=== PATIENT | female | born 1980 | race African-American/Black ===

== ENCOUNTER 2017-01-17 23:15 | Emergency (ER) | payer SELFPAY ==
[~2017-01-17] VITALS: Ht 165.1 cm; Wt 81.1 kg
[2017-01-17 23:40] LABS: HEMATOCRIT 37.4 % (36.0-46.0); MCH 27.3 PG (29.0-34.0); MCHC 32.9 G/DL (30.0-36.0); MCV 83.1 FL (83-99); MEAN PLAT.VOLUME 9.5 uM^3 (9.5-12.4); NRBC (%) 0.3 /100 WBC (0-0); PLATELET COUNT 254 K/uL (156-360); RBC DIS.WIDTH-CV 15.4 % (11.8-14.6); RBC DIS.WIDTH-SD 46.6 % (39-53); WHITE BLOOD COUNT 6.6 K/uL (4.1-10.2)
[2017-01-17 23:47] LABS: ADD MIUA? YES; BILIRUBIN NEGATIVE; BLOOD NEGATIVE; COLOR YELLOW ((YELLOW)); GLUCOSE (STRIP) NEGATIVE; KETONES 5; LEUKOCYTES SMALL; NITRITE NEGATIVE; PROTEIN (STRIP) 30; SPECIFIC GRAVITY 1.027 (1.000-1.030)
[2017-01-17 23:51] LABS: CHLORIDE 108 mEq/L (99-109); POTASSIUM 3.4 mEq/L (3.7-5.4); SODIUM 140 mEq/L (136-147)
[2017-01-17 23:53] LABS: GLUCOSE 107 mg/dL (70-99)
[2017-01-17 23:54] LABS: ANION GAP 9 MEQ/L (2-14)
[2017-01-17 23:56] LABS: BACTERIA 2+ /HPF; EPITHELIAL CELLS 1+ /HPF; MUCUS 2+ /LPF
[2017-01-17 23:57] LABS: GFR ESTIMATE (CALCULATED) > 59 mL/min/
[2017-01-17 23:58] LABS: UREA NITROGEN (BUN) 9 mg/dL (9-23)
[2017-01-18 00:05] LABS: QUANTITATIVE HCG < 4.0 MIU/ML
[2017-01-18] MEDS ORDERED: KEFLEX500 MG PO (00:32)
[2017-01-18] MEDS ORDERED: DIFLUCAN150 MG PO (00:32)
[2017-01-18 00:46] VITALS: BP 109/78
[2017-01-20 11:54] LABS: CHLAMYDIA TRACHOMATIS NEGATIVE; NEISSERIA GONORRHOEAE NEGATIVE
== END 2017-01-18 00:55 | disposition home or self-care (01) ==
LOC: EME 23:15
PROVIDERS: Physician Assistant
DX: N39.0 Urinary tract infection, site not specified (principal); B37.3 Candidiasis of vulva and vagina; N72 Inflammatory disease of cervix uteri; Z90.49 Acquired absence of other specified parts of digestive tract
CPT/HCPCS: 80048; 81003; 84443; 84702; 85027; 87077; 87086; 87491; 87591; 99281; 99285; J0696

== ENCOUNTER 2017-05-18 11:55 | Emergency (ER) | payer SELFPAY ==
[~2017-05-18] VITALS: Ht 167.6 cm; Wt 79.7 kg
[~2017-05-18 11:55] MED LIST: DIFLUCAN150 MG PO; KEFLEX500 MG PO
[2017-05-18 12:45] LABS: HEMATOCRIT 34.7 % (36.0-46.0); HEMOGLOBIN 11.6 G/DL (11.9-15.5); MCH 27.4 PG (29.0-34.0); MCHC 33.4 G/DL (30.0-36.0); MCV 81.8 FL (83-99); PLATELET COUNT 292 K/uL (156-360); RBC DIS.WIDTH-CV 15.1 % (11.8-14.6); RBC DIS.WIDTH-SD 45.2 % (39-53); RED BLOOD COUNT 4.24 M/uL (3.80-5.20); WHITE BLOOD COUNT 3.8 K/uL (4.1-10.2)
[2017-05-18 12:52] LABS: CHLORIDE 107 mEq/L (99-109); POTASSIUM 3.9 mEq/L (3.7-5.4); SODIUM 139 mEq/L (136-147)
[2017-05-18 12:54] LABS: GLUCOSE 99 mg/dL (70-99)
[2017-05-18 12:58] LABS: CREATININE 0.8 mg/dL (0.6-1.3); GFR ESTIMATE (CALCULATED) > 59 mL/min/
[2017-05-18 12:59] LABS: UREA NITROGEN (BUN) 10 mg/dL (9-23)
[2017-05-18 13:08] LABS: QUANTITATIVE HCG < 4.0 MIU/ML
[2017-05-18 13:42] LABS: APPEARANCE SL.HAZY ((CLEAR)); BILIRUBIN NEGATIVE; BLOOD NEGATIVE; COLOR YELLOW ((YELLOW)); GLUCOSE (STRIP) NEGATIVE; KETONES NEGATIVE; LEUKOCYTES NEGATIVE; NITRITE NEGATIVE; PROTEIN (STRIP) 30; SPECIFIC GRAVITY 1.032 (1.000-1.030); UROBILINOGEN 0.2 MG/DL (0.2-1.0)
[2017-05-18 13:45] LABS: BACTERIA 1+ /HPF; EPITHELIAL CELLS 2+ /HPF; MUCUS 1+ /LPF; RED BLOOD CELLS 0-5 /HPF (0-5); UCUL ADDED? NO; WHITE BLOOD CELLS 0-5 /HPF (0-5)
[2017-05-18 14:22] VITALS: BP 114/74
== END 2017-05-18 14:23 | disposition home or self-care (01) ==
LOC: EME 11:55
PROVIDERS: Physician Assistant
DX: G43.109 Migraine with aura, not intractable, without status migrainosus (principal)
CPT/HCPCS: 70450; 80048; 81003; 84702; 85027; 99281; 99284; J1885